=== PATIENT | male | born 1970 | race Caucasian/White ===

== ENCOUNTER 2022-06-13 06:00 | Inpatient (IN) ==
[~2022-06-13 06:00] MED LIST: Famotidine 20 MG/2 ML VIAL IVP ONE
[2022-06-13] MEDS ORDERED: CeFAZolin Syr 2,000MG/20 ML 2,000 MG/20 ML SYRINGE IVPB ONE (06:25)
[2022-06-13] MEDS ORDERED: cefOXitin 2,000 MG in 0.9 % Sodium Chloride 20 ML IVP ONE (06:25)
[2022-06-13] MEDS ORDERED: MetroNIDAZOLE 500 MG/100 ML 500 MG/100 ML BAG IVPB ONE (06:27)
[2022-06-13] MEDS ORDERED: Ringers Solution, Lactated 1,000 ML IVC SCH (06:30)
[2022-06-13] MEDS ORDERED: *HR* Propofol 200 MG/20 ML VIAL IVP ONE (06:48)
[2022-06-13] MEDS ORDERED: *HR* FentaNYL (PF) 100 MCG/2 ML VIAL ONE (06:48)
[2022-06-13] MEDS ORDERED: Lidocaine -MPF 2% 5 ML VIAL ONE (06:49)
[2022-06-13] MEDS ORDERED: *HR* Rocuronium Bromide 50 MG/5 ML VIAL ONE ×3 (06:49→09:53)
[2022-06-13] MEDS ORDERED: Ondansetron 4 MG/2 ML VIAL ONE (06:49)
[2022-06-13] MEDS ORDERED: Sugammadex Sodium 200 MG/2 ML VIAL IV ONE (06:54)
[2022-06-13] MEDS ORDERED: Acetaminophen IV 1,000 MG/100 ML BAG IVPB ONE (06:54)
[2022-06-13] MEDS ORDERED: *HR* OxyCODONE ER (12 HR) 10 MG TABLET PO ONE (06:55)
[2022-06-13] MEDS ORDERED: ROPIVACAINE/PF/NS 0.25% 1 EACH SYRINGE INTRAART ONE (07:21)
[2022-06-13] MEDS ORDERED: CefOXitin 1,000 MG VIAL ONE (07:22)
[2022-06-13] MEDS ORDERED: Dexmedetomidine HCl 400 MCG/100 ML MLS IVC ONE (07:22)
[2022-06-13] MEDS ORDERED: Iopamidol - 300 50 ML VIAL ONE (07:23)
[2022-06-13] MEDS ORDERED: Nitroglycerin 0.4 MG TAB.SUBL SL PRN (07:24)
[2022-06-13] MEDS ORDERED: Ondansetron 4 MG/2 ML VIAL IVP PRN (07:24)
[2022-06-13] MEDS ORDERED: Ipratropium/Albuterol Neb 3 ML IH ONE ×2 (07:24→07:34)
[2022-06-13] MEDS ORDERED: *HR* Magnesium Sulfate 1 GM/2 ML VIAL ONE (07:27)
[2022-06-13] MEDS ORDERED: Ketamine HCL *QUVA* 50mg (1mL) SYRINGE ONE ×2 (07:38→09:06)
[2022-06-13] MEDS ORDERED: *HR* Midazolam HCl 2 MG/2 ML VIAL ONE (07:38)
[2022-06-13] MEDS ORDERED: EPHEDrine 50 MG/ML VIAL ONE (09:09)
[2022-06-13] MEDS ORDERED: *HR* HYDROMORPHONE 2 MG/ML VIAL ONE (10:57)
[2022-06-13] MEDS: *HR* FentaNYL (PF) 100 MCG/2 ML VIAL IVP PRN ×4 (11:25→11:45)
[2022-06-13] MEDS ORDERED: Naloxone 0.4 MG/ML INJ IVP PRN (12:44)
[2022-06-13] MEDS: Ringers Solution, Lactated 1,000 ML IVC SCH ×2 (13:07→22:01)
[2022-06-13] MEDS: Acetaminophen IV 1,000 MG/100 ML BAG IVPB SCH ×2 (13:08→18:19)
[2022-06-13] MEDS ORDERED: Ipratropium/Albuterol Neb 3 ML IH SCH ×2 (14:00→16:00)
[2022-06-13] MEDS ORDERED: Ketorolac 30 MG/ML VIAL IVP ONE (15:00)
[2022-06-13] MEDS: Ipratropium/Albuterol Neb 3 ML IH SCH ×2 (15:58→23:39)
[2022-06-13] MEDS ORDERED: 0.9 % Sodium Chloride 2,000 ML IV ONE (18:13)
[2022-06-13] MEDS: Ketorolac 30 MG/ML VIAL IVP SCH (21:25)
[2022-06-14] MEDS: Acetaminophen IV 1,000 MG/100 ML BAG IVPB SCH ×4 (00:03→18:32)
[2022-06-14] MEDS: Ketorolac 30 MG/ML VIAL IVP SCH ×5 (00:10→23:39)
[2022-06-14] MEDS ORDERED: Morphine Sulfate Oral CONC 10 MG/0.5 ML ORAL.SYG SL PRN (02:35)
[2022-06-14 03:15] LABS: Basophils % 0.1 %; Hematocrit 37.1 % (37.5-50.1); Hemoglobin 12.8 g/dL (12.9-16.9); Immature Granulocytes % 0.4 % (0-4); Immature Platelets 5.1 % (1.1-6.1); Lymphocytes % 6.1 %; Mean Corpuscular HGB Conc 34.5 g/dL (31.6-35.5); Mean Corpuscular Hemoglobin 33.3 pg (28.0-33.3); Mean Corpuscular Volume 96.6 fL (83.0-100.0); Mean Platelet Volume 10.8 fL (9.4-12.4); Monocytes # 1.1 K/mcL (0.0-1.3); Neutrophils # 13.9 K/mcL (1.6-8.9); Platelet Count 135 K/mcL (140-400); Red Blood Count 3.84 M/mcL (4.19-5.50); Red Cell Distribution Width 13.2 % (11.5-14.5); Segmented Neutrophils % 86.4 %; White Blood Count 16.1 K/mcL (4.3-11.1)
[2022-06-14 03:25] LABS: BUN/Creatinine Ratio 12 (6-26); Blood Urea Nitrogen 12 mg/dL (6-20); Calcium 8.2 mg/dL (8.6-10.3); Carbon Dioxide 22 mEq/L (23-29); Chloride 109 mEq/L (98-107); Glucose 114 mg/dL (70-105); Magnesium 2.3 mg/dL (1.6-2.6); Osmolality,Calculated 285 (280-300); Phosphorous 3.1 mg/dL (2.7-4.5); Potassium 4.2 mEq/L (3.5-5.1); Sodium 137 mEq/L (136-145)
[2022-06-14] MEDS: Ipratropium/Albuterol Neb 3 ML IH SCH ×3 (04:57→16:13)
[2022-06-14] MEDS: Ringers Solution, Lactated 1,000 ML IVC SCH ×2 (06:15→15:37)
[2022-06-14] MEDS ORDERED: *HR* HYDROmorphone PCA *PREMADE* 20 MG/1MG/ML (20mL) PCA VIAL IVC PRN (07:49)
[2022-06-14] MEDS: Tiotropium 10 INH DOSE IH SCH (10:41)
[2022-06-14] MEDS: Nicotine 21 MG PATCH.TD24 TD SCH (10:44)
[2022-06-14] MEDS ORDERED: Chloraseptic Spray 177 ML BOTTLE MM PRN (12:49)
[2022-06-14] MEDS: *HR* LORazepam 2 MG/ML VIAL IVP PRN ×2 (13:11→21:38)
[2022-06-14] MEDS: *HR* Heparin 5,000 UNIT/ML VIAL SQ SCH ×2 (15:38→21:37)
[2022-06-14] MEDS ORDERED: Lidocaine Jelly 11 ml Syringe MM ONE (15:49)
[2022-06-15] MEDS: Ringers Solution, Lactated 1,000 ML IVC SCH ×2 (00:17→08:27)
[2022-06-15] MEDS: Acetaminophen IV 1,000 MG/100 ML BAG IVPB SCH ×4 (01:04→19:46)
[2022-06-15] MEDS: Ipratropium/Albuterol Neb 3 ML IH SCH ×5 (01:12→23:29)
[2022-06-15] MEDS: Ketorolac 30 MG/ML VIAL IVP SCH ×3 (05:45→17:39)
[2022-06-15] MEDS: *HR* Heparin 5,000 UNIT/ML VIAL SQ SCH ×3 (05:45→21:51)
[2022-06-15] MEDS: Tiotropium 10 INH DOSE IH SCH (08:03)
[2022-06-15] MEDS: Nicotine 21 MG PATCH.TD24 TD SCH (08:28)
[2022-06-15] MEDS: D5% in 0.45% NACL w KCl 20 MEQ/1,000 ML MLS IVC SCH ×2 (11:28→21:52)
[2022-06-15] MEDS: *HR* LORazepam 2 MG/ML VIAL IVP PRN (21:50)
[2022-06-16] MEDS: Ketorolac 30 MG/ML VIAL IVP SCH ×4 (00:28→17:09)
[2022-06-16] MEDS: Acetaminophen IV 1,000 MG/100 ML BAG IVPB SCH ×4 (00:30→20:54)
[2022-06-16] MEDS: Ipratropium/Albuterol Neb 3 ML IH SCH ×4 (04:15→21:51)
[2022-06-16 04:45] LABS: Basophils % 0.4 %; Eosinophils # 0.1 K/mcL (0.0-0.6); Eosinophils % 1.7 %; Hematocrit 37.3 % (37.5-50.1); Hemoglobin 12.4 g/dL (12.9-16.9); Immature Granulocytes % 0.3 % (0-4); Immature Platelets 4.4 % (1.1-6.1); Lymphocytes # 1.9 K/mcL (0.6-4.6); Lymphocytes % 24.5 %; Mean Corpuscular HGB Conc 33.2 g/dL (31.6-35.5); Mean Corpuscular Hemoglobin 32.6 pg (28.0-33.3); Mean Corpuscular Volume 98.2 fL (83.0-100.0); Mean Platelet Volume 10.5 fL (9.4-12.4); Monocytes # 0.7 K/mcL (0.0-1.3); Monocytes % 8.3 %; Neutrophils # 5.1 K/mcL (1.6-8.9); Platelet Count 121 K/mcL (140-400); Red Cell Distribution Width 13.3 % (11.5-14.5); Segmented Neutrophils % 64.8 %; White Blood Count 7.8 K/mcL (4.3-11.1)
[2022-06-16 05:02] LABS: BUN/Creatinine Ratio 11 (6-26); Blood Urea Nitrogen 9 mg/dL (6-20); Calcium 8.3 mg/dL (8.6-10.3); Carbon Dioxide 26 mEq/L (23-29); Chloride 109 mEq/L (98-107); Glucose 100 mg/dL (70-105); Osmolality,Calculated 289 (280-300); Potassium 3.7 mEq/L (3.5-5.1); Sodium 140 mEq/L (136-145)
[2022-06-16] MEDS: *HR* Heparin 5,000 UNIT/ML VIAL SQ SCH ×3 (06:43→22:08)
[2022-06-16] MEDS: Tiotropium 10 INH DOSE IH SCH (07:40)
[2022-06-16] MEDS ORDERED: Nitroglycerin 0.4 MG TAB.SUBL SL PRN (08:00)
[2022-06-16] MEDS: D5% in 0.45% NACL w KCl 20 MEQ/1,000 ML MLS IVC SCH ×2 (09:46→21:04)
[2022-06-16] MEDS: lisinopriL 10 MG TABLET PO SCH (09:53)
[2022-06-16] MEDS: Aspirin Enteric Coated 81 MG Tablet PO SCH (09:53)
[2022-06-16] MEDS: Nicotine 21 MG PATCH.TD24 TD SCH (09:54)
[2022-06-16] MEDS: Fluticasone Propionate Nasal 50 MCG/SPRAY BOTTLE NS SCH (10:03)
[2022-06-16] MEDS: *HR* LORazepam 2 MG/ML VIAL IVP PRN (20:51)
[2022-06-17] MEDS: Acetaminophen IV 1,000 MG/100 ML BAG IVPB SCH ×2 (00:13→05:26)
[2022-06-17] MEDS: Ketorolac 30 MG/ML VIAL IVP SCH ×2 (00:19→05:20)
[2022-06-17] MEDS: Ipratropium/Albuterol Neb 3 ML IH SCH ×3 (03:45→15:24)
[2022-06-17 05:19] VITALS: O2SAT 94
[2022-06-17] MEDS: *HR* Heparin 5,000 UNIT/ML VIAL SQ SCH (05:21)
[2022-06-17] MEDS ORDERED: *HR* HYDROmorphone (PF) 1 MG/ML SYRINGE IVP PRN (07:57)
[2022-06-17] MEDS: Aspirin Enteric Coated 81 MG Tablet PO SCH (09:39)
[2022-06-17] MEDS: lisinopriL 10 MG TABLET PO SCH (09:39)
[2022-06-17] MEDS: Nicotine 21 MG PATCH.TD24 TD SCH (09:40)
[2022-06-17] MEDS: Tiotropium 10 INH DOSE IH SCH (10:33)
[2022-06-17 11:54] VITALS: BP 107/61; PULSE 83; TEMP 97.8
[2022-06-17] MEDS: Fluticasone Propionate Nasal 50 MCG/SPRAY BOTTLE NS SCH (12:25)
== END 2022-06-17 15:53 | disposition home or self-care (01) | DRG 231 ==
LOC: SAMDAY 06:00 → 3ANU 12:40
PROVIDERS: ADMIT Surgery; ATTEND Surgery